=== PATIENT | female | born 1970 | race Caucasian/White ===

== ENCOUNTER 2018-01-01 19:00 | Outpatient (CLI) | payer BC ==
[2014-08-03 06:08] VITALS: BMI 39.6
[~2018-01-01 19:00] MED LIST: ALBUTEROL0.63 MG/3 INH; BUTALB-APAP-CA1 EACH PO; DYAZIDE 37.5/251 CAP PO; FEXOFENADINE H180 MG PO; FORTAMET1000 MG/BO PO; HYDROCODONE-APA1 TAB PO; LIPITOR10 MG PO; LISINOPRIL2.5 MG PO; MOBIC7.5 MG PO; PEPCID40 MG PO; PROAIR HFA8.5 GM INH; PROMETRIUM100 MG PO; ROBAXIN500 MG PO; VICTOZA0.6 MG/0.1 SQ; VITAMIN D5000 UNIT PO; ZOFRAN4 MG PO
== END 2018-01-01 23:59 | disposition home or self-care (01) ==
LOC: D.MAMMO 19:00
DX: Z12.31 Encounter for screening mammogram for malignant neoplasm of breast (principal)

== ENCOUNTER 2018-07-16 09:06 | Emergency (ER) | payer BC ==
[~2018-07-16] VITALS: Ht 167.6 cm; Wt 102.5 kg
[2018-07-16 09:12] VITALS: Ht 167.6 cm; Wt 102.5 kg
[2018-07-16 10:14] VITALS: BP 134/83
[2018-07-16] MEDS ORDERED: PREDNISONE20 MG PO (10:22)
== END 2018-07-16 10:33 | disposition home or self-care (01) ==
LOC: D.ER 09:06
DX: G51.0 Bell's palsy (principal)

== ENCOUNTER → 2018-10-06 07:39 | Outpatient (CLI) | payer BC ==
[2018-07-16 09:12] VITALS: BMI 39.6
[~2018-10-06 07:39] MED LIST changes: +PREDNISONE20 MG PO
== END | disposition home or self-care (01) ==
LOC: D.CT 07:39
PROVIDERS: ATTEND Family Medicine
DX: R10.11 Right upper quadrant pain (principal)

== ENCOUNTER 2018-10-19 08:12 | Day surgery (SDC) | payer BC ==
[~2018-10-19] VITALS: Ht 167.6 cm; Wt 99.1 kg
[2018-10-19 08:27] LABS: HEMATOCRIT 41.2 % (36.0-48.0); HEMOGLOBIN 13.6 g/dL (12-16); MCH 25.8 pg (26.0-34.0); MEAN PLATELET VOLUME 8.7 fL (7.4-10.4); RBC 5.28 10x6/uL (4.00-5.40); RDW 14.3 % (11.5-14.5); WBC 7.6 10x3/uL (4.8-10.8)
[2018-10-19 08:37] LABS: ANION GAP 10.7 mmol/L (8-16); CALCIUM 8.5 mg/dL (8.5-10.1); CARBON DIOXIDE 28.2 mmol/L (21.0-32.0); CREATININE - SERUM 0.9 mg/dL (0.6-1.3)
[2018-10-19 08:41] LABS: POTASSIUM - SERUM 2.9 mmol/L (3.5-5.1)
[2018-10-19] MEDS ORDERED: FARXIGA10 MG PO (08:55)
[2018-10-19] MEDS ORDERED: ESTRACE 0.5 MG0.5 MG PO (08:56)
[2018-10-19] MEDS ORDERED: PROTONIX40 MG PO (08:56)
[2018-10-19] MEDS ORDERED: VITAMIN D250000 UNIT PO (08:57)
[2018-10-19] MEDS ORDERED: METOPROLOL TART25 MG PO (08:58)
[2018-10-19] MEDS ORDERED: TROKENDI 100 MG (08:59)
[2018-10-19] MEDS ORDERED: SINGULAIR10 MG PO (08:59)
[2018-10-19 09:06] VITALS: BP 120/62; Ht 167.6 cm; Wt 99.1 kg
--- NOTE | 2018-10-19 14:05 | NUR ---
1400 RETAINED FULL LIQUID DIET. NO COMPLAINTS OF NAUSEA. 1 K-DUR 20 MEQ PO ORDERED. SIPPING SODA. BP 98/57. Zoe BARRERA R.N.
--- NOTE | 2018-10-19 14:47 | NUR ---
1440 AWAKE & ALERT. DRESSED. GIVEN DISCHARGE INSTRUCTIONS INCLUDING SHEET LISTING NSAIDS TO AVOID, MED REC., [facility] POST ENDOSCOPIC PROCEDURES D/C INSTRUCTIONS, SHEET LISTING HIGH FIBER FOODS. PT VOICED UNDERSTANDING. TO PRIVATE CAR PER WHEELCHAIR BY STAFF. HOME WITH , MR. MERCADO. Zoe BARRERA R.N.
--- NOTE | 2018-10-19 15:22 | HP ---
PATIENT: ODALIS MERCADO MEDICAL RECORD: [id number] ACCOUNT: [id number] LOCATION:DO : 72 ADMISSION DATE: 10/19/18 PCP: GALILEA YE DO HISTORY AND PHYSICAL EXAMINATION CHIEF COMPLAINT: Weight loss. HISTORY OF PRESENT ILLNESS: The patient has had a weight loss of about 25 pounds since April. It is now September. She has been having some right upper quadrant abdominal pain as well. She has an abnormality found on CT scan, which was worrisome for a neoplastic process or a colitis in the right upper quadrant near the hepatic flexure. I personally reviewed the CT images. I have personally reviewed the CT report. She underwent a colonoscopy in [address] Dial. She has noted no melena. No hematochezia. PAST MEDICAL AND SURGICAL HISTORY: Sleep apnea, on CPAP, asthma. She saw Dr. Ziegler for heart rhythm problems. Gastroesophageal reflux, wyg-pgshglk-vjrifscjs diabetes mellitus. HOME MEDICATIONS: Please see the nursing list. ALLERGIES: BEEF, MILK. PHYSICAL EXAMINATION: GENERAL: The patient does not appear acutely ill. She does not appear chronically ill. VITAL SIGNS: Reviewed. EARS: External ears appear normal. EYES: Extraocular movements are intact. NECK: Trachea is midline. CHEST: No intercostal retractions. PULMONARY: Nonlabored, no stridor. ABDOMEN: Right upper quadrant tenderness. I cannot feel the mass. There is no guarding. The entire examination was performed with the presence of a female nurse. IMPRESSION: 1. Right upper quadrant pain. 2. Unexplained weight loss. 3. Abnormality on CT scan. PLAN: Diagnostic colonoscopy. TRANSINT:[id number] Voice Confirmation ID: [id number] DOCUMENT ID: [id number] HISTORY AND PHYSICAL [id number] ODALIS MERCADO ROBERT MD at 1522 CC: VINCENZO ZIEGLER M.D. and GALILEA YE DO [phone] DICTATION DATE: 10/19/188 DISTRICT MANAGER MAJOR ACCOUNTS SALES: 10/19/18 1228 [facility] 10/19/18 [facility] [address] [place] [address]
--- NOTE | 2018-10-20 09:21 | OP ---
PATIENT NAME: ODALIS MERCADO MEDICAL RECORD: [id number] :72 LOCATION:D.OPS ADMISSION DATE: SURGEON: OSCAR ABDALLA MD DATE OF OPERATION: 10/19/2018 PREOPERATIVE DIAGNOSES: 1. Unexplained weight loss. 2. Right upper quadrant pain. 3. CT abnormality in the right upper quadrant at the hepatic flexure suspicious for colitis versus a neoplasm. POSTOPERATIVE DIAGNOSES: 1. Unexplained weight loss. 2. Right upper quadrant pain. 3. CT abnormality in the right upper quadrant at the hepatic flexure suspicious for colitis versus neoplasm. 4. No evidence of colitis and no evidence of malignancy. No polyps, no masses. PROCEDURES: 1. Total colonoscopy to cecum. 2. Cold endoscopic biopsies in the area at the hepatic flexure. SURGEON: Oscar Abdalla MD RN CIRCULATING: None. BLOOD LOSS: Minimal. ANESTHESIA: IV sedation. COMPLICATIONS: None. The risks, possible complications, and alternatives to the procedure were explained to the patient. She elects to proceed. The discussion specifically included, but was not limited to, bleeding requiring emergency reoperation, infection, possible need for an operative procedure. The patient underwent a colonoscopy back in 2017 according to the patient's history and no malignancy was identified at that time. A CT scan has demonstrated a strictured area at the hepatic flexure. OPERATIVE COURSE: The patient was conveyed to the operating room electively on the 10/19/2018. General anesthesia was induced by the anesthesia staff. The patient was placed in the Ramirez position. A digital rectal examination was performed. A colonoscope was inserted through the anus. It was easily advanced to the cecum. Upon withdrawal, I irrigated and aspirated extensively. The pullback was greater than 30-minute pullback. I dragged the folds. I used not only normal imaging, but also narrow band imaging to visualize the colonic and rectal flood. I noted no evidence of colitis; however, in the area of suspicion on the CT scan, I did perform random colon biopsies, which were cold endoscopic biopsies. A retroflexed view was obtained in the rectum. I then unretroflexed the scope and removed it under direct vision. 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 I am going to recommend that she not come see me in the office, but instead look me up in a OPERATIVE REPORT [id number] ROGELIO,ODALIS A few days and we will review the results of the biopsies. I am at a loss to explain why the CT findings would indicate a neoplastic process or colitis. Additionally, I have not found the etiology for her right upper quadrant pain. TRANSINT:[id number] Voice Confirmation ID: [id number] DOCUMENT ID: [id number] OSCAR ABDALLA MD at 0921 CC: JOEY CASILLAS MD, GALILEA YE DO and MIKAL TERRY [phone] DICTATION DATE: 10/19/18 1542 BONDED STRUCTURES REPAIRER: 10/19/18 1607 [facility] 10/19/18 [facility] [address] [place] [address]
== END 2018-10-19 14:40 | disposition home or self-care (01) ==
LOC: D.OPS 08:12
PROVIDERS: Anesthesiology; ATTEND Surgery
DX: R63.4 Abnormal weight loss (principal); R10.11 Right upper quadrant pain; K21.9 Gastro-esophageal reflux disease without esophagitis; E11.9 Type 2 diabetes mellitus without complications

== ENCOUNTER → 2019-02-07 07:55 | Outpatient (CLI) | payer BC ==
[2018-10-19 09:06] VITALS: BMI 35.2
[~2019-02-07 07:55] MED LIST changes: +ESTRACE 0.5 MG0.5 MG PO; +FARXIGA10 MG PO; +METOPROLOL TART25 MG PO; +PROTONIX40 MG PO; +SINGULAIR10 MG PO; +TROKENDI 100 MG; +VITAMIN D250000 UNIT PO
== END | disposition home or self-care (01) ==
LOC: D.NM 07:55
PROVIDERS: ATTEND Family Medicine
DX: R93.7 Abnormal findings on diagnostic imaging of other parts of musculoskeletal system (principal)

== ENCOUNTER → 2019-11-03 09:31 | Outpatient (CLI) | payer BC ==
[2018-10-19 09:06] VITALS: BMI 35.2
== END | disposition home or self-care (01) ==
LOC: D.HCCARDIO 09:31
PROVIDERS: ATTEND Internal Medicine Cardiovascular Disease
DX: I20.9 Angina pectoris, unspecified (principal)

== ENCOUNTER 2019-11-24 07:04 | Day surgery (SDC) | payer BC ==
[~2019-11-24] VITALS: Ht 167.6 cm; Wt 105.1 kg
--- NOTE | ~2019-11-24 | HEMODYNAMI ---
PATIENT:ODALIS MERCADO MEDICAL RECORD: [id number] : 72 LOCATION:[place] ADMISSION DATE: 11/24/19 Generatedon:11/24/20199:40 Patient name: ODALIS MERCADO Patient #: [id number] SSN: : 1970 Date of study: 11/24/2019 Page: Of Hemodynamic Procedure Report Patient Data Patient Demographics Procedure consent was obtained First Name: ODALIS Gender: Female Last Name: ROGELIO : 1970 Middle Initial: A Age: 49 year(s) Patient #: [id number] Race: Unknown Additional ID: [id number] Contact details [address]: [address] [place] [address] [address] State: [place] City: [place] Zip code: [address] Admission Admission Data Admission Date: 11/24/2019 Admission Time: 7:04 Procedure Procedure Types Cath Procedure Diagnostic Procedure LHC LHC w/Coronaries Sedation Charges Moderate Sedation up to 15 minutes Procedure Description Procedure Date Procedure Date: 11/24/2019 Procedure Start Time: 9:27 Procedure End Time: 9:37 Procedure Staff Name Function Andrzej Ziegler MD Performing Physician Madeline Muniz RT Monitor Gilmer Montes RN Nurse Martha Browne RT Scrub Procedure Data Cath Procedure Fluoroscopy Diagnostic fluoroscopy Total fluoroscopy Time: 1.7 time: 1.7 min min Diagnostic fluoroscopy Total fluoroscopy dose: 469 dose: 469 mGy mGy Contrast Material Contrast Material Type Amount (ml) Isovue 300 36 Entry Location Entry Primary Successful Side Size Upsize Upsize Entry Closure Amaya ccessful Closure Location (Fr) 1 (Fr) 2 (Fr) Remarks Device Remarks Radial Right 6 Fr Mechanical artery Short Compression Estimated blood loss: 10 ml Diagnostic catheters Device Type Used For End Catheter Placement DIAGNOSTIC [place] 110cm 5 Procedure Fr catheter ([id number]) Procedure Complications No complications Procedure Medications Medication Administration Route Dosage 0.9% NaCl I.V. 100 ml/hr Oxygen etCO2 Nasal cannula 2 l/min Heparin Flush Bag added to field 2 bags (1000units/500ml NS) Lidocaine 2% added to field 20 Radial Cocktail added to field 1 syringe (Verapamil 2mg/Nitro 400mcg/Heparin 1500units) Versed I.V. 2 mg Fentanyl I.V. 50 mcg Fentanyl I.V. 50 mcg Radial Cocktail I.A. 1 syringe (Verapamil 2mg/Nitro 400mcg/Heparin 1500units) Hemodynamics Rest Heart Rate: 64 (bpm) Pressure Samples Time Site Value (mmHg) Purpose Heart Use Rate(bpm) 9:31 LV 127/9,11 Snapshot 68 9:31 AO 97/58(76) Pullback 72 9:31 LV 104/4,21 Pullback 72 Gradients Valve Time Site 1 Site 2 Mean SEP/DFP Peak To Heart Use (mmHg) (sec/min) Peak Rate (mmHg) (bpm) Aortic 9:31 LV AO 8 19 7 72 104/4,21 97/58(76) Calculations Valve P-P Mean Valve Index Valve Source Name Gradient Area Flow (cm2) Aortic 7 8 7 8 Snapshots Pre Cath Intra NCS Post Cath Vital Signs Time Heart Resp SPO2 etCO2 NIBP Rhythm Pain Sedation Rate (ipm) (%) (mmHg) (mmHg) Status Level (bpm) 8:57:52 64 13 100 38 115/66(90) NSR 0 (11) 10(A) , No pain 9:02:04 68 14 100 38.8 114/74(85) NSR 0 (11) 10(A) , No pain 9:06:14 64 11 100 111/70(87) NSR 0 (11) 10(A) , No pain 9:10:26 66 10 100 40.3 107/67(88) NSR 0 (11) 10(A) , No pain 9:14:38 62 13 99 44.1 101/59(83) NSR 0 (11) 10(A) , No pain 9:18:48 60 13 98 44 96/59(85) NSR 0 (11) 10(A) , No pain 9:22:58 66 13 98 39.6 91/57(72) NSR 0 (11) 10(A) , No pain 9:27:06 61 11 98 44.8 91/55(70) NSR 0 (11) 9(A) , No pain 9:31:15 83 13 100 41.1 94/51(67) NSR 0 (11) 10(A) , No pain 9:35:25 69 17 98 40.4 96/54(75) NSR 0 (11) 10(A) , No pain Medications Time Medication Route Dose Verified Delivered Reason Notes Effectiveness by by 8:55:57 0.9% NaCl I.V. 100 Gilmer Gilmer Per ml/hr Simon Montes physician RN RN 8:56:06 Oxygen etCO2 2 l/min Gilmer Gilmer for low 02 Nasal Lorigan Lorigan sats cannula RN RN 8:56:17 Heparin Flush added 2 bags Gilmer Gilmer used for Bag to Lorigan Lorshy procedure (1000units/500ml field RN RN NS) 8:56:27 Lidocaine 2% added 20ml Gilmer Gilmer for local to vial Lorigan Lorigan anesthetic field RN RN 8:56:43 Radial Cocktail added 1 Gilmer Gilmer used for (Verapamil to syringe Lorigan Lorigan procedure 2mg/Nitro field RN RN 400mcg/Heparin 1500units) 9:17:25 Versed I.V. 2 mg Gilmer Gilmer for sedation Simon Montes RN RN 9:17:33 Fentanyl I.V. 50 mcg Gilmer Gilmer for sedation Simon Montes RN RN 9:28:46 Fentanyl I.V. 50 mcg Gilmer Gilmer for sedation Simon Montes RN RN 9:30:28 Radial Cocktail I.A. 1 Gilmer Gilmer for (Verapamil syringe Lorigan Lorigan vasodilation 2mg/Nitro RN RN 400mcg/Heparin 1500units) Procedure Log Time Note 8:35:32 Informed consent obtained and on chart 8:36:28 Gilmer Montes RN sent for patient. Start room use. 8:36:29 Procedure Status Elective Heart Cath (OP). 8:36:30 Time tracking: Regular hours (M-F 7:00 - 5:00) 8:36:35 Plan of Care:Hemodynamics will remain stable., Cardiac rhythm will remain stable., Comfort level will be maintained., Respiratory function will remain adequate., Patient/ family verbilizes understanding of procedure., Procedure tolerated without complication., Recovers from procedure without complications.. 8:47:10 Warm blankets applied, and nata hugger turned on for patient comfort. 8:47:11 Correct patient and procedure confirmed by team. 8:47:12 ECG and BP/O2 sat monitors applied to patient. 8:47:47 H&P Date Dictated: 10/27/2019 Within 30 days and on chart.. 8:47:50 Pre-procedure instructions explained to patient. 8:47:53 Family in patients room. 8:47:55 Patient NPO since Midnight. 8:48:20 Is patient on blood thinner?No 8:48:22 Patient diabetic? Yes. 8:48:24 If diabetic: On Metformin? No 8:48:29 Snore? Yes 8:48:31 Sleep apnea? Yes 8:48:40 Airway obstruction? Yes asthma 8:48:44 Dentures? No ? 8:48:54 Patient pain scale 0/10 ?. 8:49:02 IV patent on arrival in left forearm with 0.9% NaCl at [facility]. 8:49:05 Lab results completed and on chart. 8:55:57 0.9% NaCl 100 ml/hr I.V. was administered by Gilmer Montes RN; Per physician; Verbal order read back and verified. 8:56:06 Oxygen 2 l/min etCO2 Nasal cannula was administered by Gilmer Montes RN; for low 02 sats; Verbal order read back and verified. 8:56:17 Heparin Flush Bag (1000units/500ml NS) 2 bags added to field was administered by Gilmer Montes RN; used for procedure; Verbal order read back and verified. 8:56:27 Lidocaine 2% 20ml vial added to field was administered by Gilmer Montes RN; for local anesthetic; Verbal order read back and verified. 8:56:43 Radial Cocktail (Verapamil 2mg/Nitro 400mcg/Heparin 1500units) 1 syringe added to field was administered by Gilmer Montes RN; used for procedure; Verbal order read back and verified. 8:56:46 Vital chart was started 8:57:06 Stress Test: yes; abnormal ? 8:57:11 Right Radial & Right Groin area was prepped with chlora-prep and draped in sterile fashion 8:57:12 Alarms reviewed by R. N. 8:57:13 Sharps counted by scrub and verified by R.N. 8:57:18 Use device set Radial Dx or PCI 8:57:23 ACIST Syringe (11468) opened to sterile field. 8:57:24 Medline Cath Pack ([id number]) opened to sterile field. 8:57:24 Bag Decanter () opened to sterile field. 8:57:24 ACIST Hand Control (40021) opened to sterile field. 8:57:25 ACIST Manifold (87910) opened to sterile field. 8:57:27 MBrace Wrist Support (164567728) opened to sterile field. 8:57:30 NEEDLE Cook 21G 4cm Radial (V79218) opened to sterile field. 8:57:32 EMERALD Guide Wire (502-000) opened to sterile field. 8:57:34 SHEATH 6FR RAIN (8849807) opened to sterile field. 9:16:42 Baseline sample Acquired. 9:16:44 Full Disclosure recording started 9:16:49 Physician arrived 9:16:53 --------ALL STOP TIME OUT------ 9:16:56 Final Timeout: patient, procedure, and site verified with staff and physician. All members of the team are in agreement. 9:17:25 Versed 2 mg I.V. was administered by Gilmer Montes RN; for sedation; Verbal order read back and verified. 9:17:26 Right Radial & Right Groin site verified by team. 9:17:30 Fire Safety Assessment: A--An alcohol-based skin anteseptic being used preoperatively., C--Open oxygen or nitrous oxide is being used., D--An ESU, laser, or fiber-optic light is being used. 9:17:33 Fentanyl 50 mcg I.V. was administered by Gilmer Montes RN; for sedation; Verbal order read back and verified. 9:17:35 Physical assessment completed. ASA score P 2 - A patient with mild systemic disease as per Andrzej Ziegler MD. 9:17:42 1) 90+ Normal kidney functon but urine findings or structural abnormalities or genetic trait point to kidney disease. 9:17:46 Maximum allowable contrast dose (3.7 X eGFR X 0.75)250 ml. 9:18:01 Sedation plan: IV Moderate Sedation Medication:Versed, Fentanyl 9:21:14 Zero performed for pressure channel P1 9:27:23 Procedure started. 9:27:47 Local anesthetic to right radial artery with Lidocaine 2% by Andrzej Ziegler MD.INITIAL ACCESS ONLY 9:28:46 Fentanyl 50 mcg I.V. was administered by Gilmer Montes RN; for sedation; Verbal order read back and verified. 9:29:37 A 6 Fr Short sheath was inserted into the Right Radial artery 9:30:01 A DIAGNOSTIC [place] 110cm 5 Fr catheter (622724) was advanced over the wire and used for Procedure. 9:30:06 LV angiography performed. 9:30:26 LV gram done using SPENCER 9:30:28 Radial Cocktail (Verapamil 2mg/Nitro 400mcg/Heparin 1500units) 1 syringe I.A. was administered by Gilmer Montes RN; for vasodilation; Verbal order read back and verified. 9:31:31 EF : 60 % 9:31:57 LCA angiography performed. 9:33:55 RCA angiography performed. 9:34:06 Catheter removed. 9:34:18 ZEPHYR REGULAR TR BAND (087693) opened to sterile field. 9:35:02 Sheath removed intact; hemostasis achieved with Mechanical Compression to the Right Radial artery. 9:35:05 Procedure ended.(Physican Out) 9:35:35 Fluoroscopy time 01.70 minutes. 9:35:40 Fluoroscopy dose: 469 mGy 9:35:40 Flurop Dose total: 469 9:35:44 Dose Area Product 36619 mGy/cm. 9:35:50 Contrast amount:Isovue 300 36ml. 9:35:52 Maximum allowable dose exceeded? No. 9:35:54 Insertion/operative site no bleeding no hematoma. 9:35:58 [place] band inflated with 10cc of air. 9:36:01 Post Procedure Pulses reassessed and unchanged 9:36:05 Post procedure rhythm: unchanged. 9:36:09 Estimated blood loss: 10 ml 9:36:14 Post procedure instruction explained to patient.Patient verbalizes understanding. 9:36:31 Procedure type changed to Cath procedure, Diagnostic procedure, LHC, [facility] w/Coronaries, Sedation Charges, Moderate Sedation up to 15 minutes 9:36:32 Procedure and supply charges have been captured, reviewed, submitted and are correct. 9:36:50 Procedure Complication : No complications 9:36:53 Vital chart was stopped 9:36:55 [facility] Findings: mild to moderate CAD (<70%) 9:36:57 See physician's report for complete and final results. 9:37:00 Report given to Pre/Post Procedure Room. 9:37:07 Patient transfered to Pre/Post Procedure Room with Stretcher. 9:37:09 Procedure ended. 9:37:09 Full Disclosure recording stopped 9:37:14 End room use (Document Last) 9:39:10 End room use (Document Last) 9:39:37 End room use (Document Last) Device Usage Item Name Manufacture Quantity Catalog Hospital Part Current Minima l Lot# / Number Charge Number Stock Stock Serial# Code ACIST Acist 1 87589 169941 193042 794419 20 Syringe Medical (45104) Systems Inc Medline Medline 1 [id number] 471287 30626 583864 5 Cath Pack ([id number]) Bag Microtek 1 953106 07911 131399 5 Decanter Medical Inc. () ACIST Hand Acist 1 07224 837080 536800 121346 5 Control Medical (10338) Systems Inc ACIST Acist 1 41866 756971 773943 099237 5 Manifold Medical (31674) Systems Inc MBrace Advanced 1 140-0250-00 252240 75051 767868 5 Wrist Vascular Support Dynamics ([id number]) NEEDLE Cook Cook Medical 1 U75756 882107 151495 042244 5 21G 4cm Radial (H12747) EMERALD Cardinal 1 502-455 584089 436650 229019 5 Guide Wire Health (502455) SHEATH 6FR Cardinal 1 6573571 908357 0142167 228154 5 [facility] (9148476) DIAGNOSTIC Terumo 1 40-5013 170446 103288 525616 5 [place] 110cm 5 Fr catheter (587694) ZEPHYR Cardinal 1 442743 815115 0005624 406857 5 REGULAR TR Health BAND (405700) Signature Audit [place] Stage Time Signature Unsigned Intra-Procedure 11/24/2019 Madeline Muniz 9:39:10 AM RT(R) Intra-Procedure 11/24/2019 Gilmer 9:39:37 AM Simon JACINTO Intra-Procedure 11/24/2019 Andrzej Ziegler MD 9:40:03 AM [place] [address] [place] [address]
[~2019-11-24 07:04] MED LIST changes: +METHOCARBAMOL500 MG PO; -ROBAXIN500 MG PO; -TROKENDI 100 MG; +TROKENDI 100 MG PO
[2019-11-24] MEDS ORDERED: JARDIANCE25 MG PO (08:07)
[2019-11-24] MEDS ORDERED: VITAMIN D50000 UNI2 PO (08:07)
[2019-11-24] MEDS ORDERED: ESTRACE2 MG PO (08:13)
[2019-11-24] MEDS ORDERED: METHOCARBAMOL500 MG PO (08:14)
[2019-11-24 08:22] VITALS: BP 119/60; Ht 167.6 cm; Wt 105.1 kg
[2019-11-24 08:23] LABS: BASOPHILS 0.3 % (0-2); EOSINOPHILS 1.8 % (0-7); HEMATOCRIT 38.4 % (36.0-48.0); HEMOGLOBIN 11.9 g/dL (12-16); IMMATURE GRANULOCYTES 0.1 % (0-5); LYMPHOCYTES 32.7 % (15-50); MCH 22.9 pg (26.0-34.0); MCV 73.8 fL (80.0-100.0); MEAN PLATELET VOLUME 8.5 fL (7.4-10.4); MONOCYTES 6.7 % (2-11); NEUTROPHILS 58.4 % (40-80); PLATELET COUNT 277 10x3/uL (130-400); RDW 17.5 % (11.5-14.5); WBC 7.8 10x3/uL (4.8-10.8)
[2019-11-24 08:51] LABS: ALT (SGPT) 16 U/L (10-68); CALC OSMOLALITY 276 mosm/kg (275-300); CALCIUM 8.5 mg/dL (8.5-10.1); CHLORIDE - SERUM 105 mmol/L (98-107); CHOLESTEROL, TOTAL 178 mg/dL (0-200); CREATININE - SERUM 0.6 mg/dL (0.6-1.3); GLUCOSE 148 mg/dL (74-106); HDL CHOLESTEROL 60 mg/dL (32-96); LDL CHOLESTEROL 92 mg/dL (0-100); LDL-HDL RATIO 1.5 ratio (1.5-3.5); POTASSIUM - SERUM 3.5 mmol/L (3.5-5.1); SODIUM 137 mmol/L (136-145); TRIGLYCERIDE 130 mg/dL (30-200); UREA NITROGEN 12 mg/dL (7-18); eGFR NON AFRICAN AMERICAN > 90 mL/min (90-120)
--- NOTE | 2019-11-24 09:45 | NUR ---
PT REC'D TO ROOM 3 VIA STRETCHER FROM PSYCHOLOGICAL OPERATIONS. MONITORS ESTAB. AT BS. SEE BUSINESS LAW PROFESSOR. ALARMS ON AND C/L IN REACH.
--- NOTE | 2019-11-24 10:00 | NUR ---
R WRIST SITE C/D/I, NO S/S BLEEDING OR SWELLING. R ARM/HAND WARM WITH PALP PULSES AND BRISK CAP REFILL. DR. WARREN AT BS TO UPDATE PT AND , VSS, ALARMS ON AND C/L IN REACH.
--- NOTE | 2019-11-24 10:30 | NUR ---
PT RESTING QUIETLY. R WRIST SITE C/D/I, NO S/S BLEEDING OR HEMATOMA. PULSES PALP. PT REFUSES SANDWICH TRAY AT THIS TIME, DENIES N/V. ALARMS ON AND C/L IN REACH.
--- NOTE | 2019-11-24 10:45 | NUR ---
R WRIST SITE C/D/I, NO S/S BLEEDING OR SWELLING, PULSES PALP. VSS. C/L IN REACH.
--- NOTE | 2019-11-24 11:01 | NUR ---
3CC AIR REMOVED FROM Z BAND, NO S/S BLEEDING OR HEMATOMA. PULSES PALP. WILL CONT CLOSE MONITORING. ALARMS ON AND C/L IN REACH.
--- NOTE | 2019-11-24 11:15 | NUR ---
TOTAL 5 CC AIR REMOVED FROM Z BAND. NO S/S BLEEDING OR SWELLING, HAND WARM WITH PALP PULSES. VSS. PT DENIES PAIN OR NEEDS. AT BS.
--- NOTE | 2019-11-24 11:30 | NUR ---
ALL AIR REMOVED FROM Z BAND, NO S/S BLEEDING OR SWELLING. R ARM/HAND WARM WITH PALP PULSES. VSS. WILL CONT CLOSE MONITORING.
--- NOTE | 2019-11-24 12:05 | NUR ---
R WRIST SITE C/D/I, NO S/S BLEEDING. Z BAND REMOVED AND DSG APPLIED. PIV D/C'D INTACT, DSG APPLIED. PT ALLOWED UP TO GET DRESSED AND GO TO BR INDEPENDENTLY.
--- NOTE | 2019-11-24 12:10 | NUR ---
ALL DISCHARGE INSTRUCTIONS REVIEWED WITH PT AND HER , BOTH VERBALIZE UNDERSTANDING. PT D/C'D VIA WC TO PRIVATE VEHICLE WITH ALL PAPER WORK AND BELONGINGS.
== END 2019-11-24 12:10 | disposition home or self-care (01) ==
LOC: D.CATH 07:04
PROVIDERS: ATTEND Internal Medicine Cardiovascular Disease
DX: I20.9 Angina pectoris, unspecified (principal); R94.39 Abnormal result of other cardiovascular function study; R06.00 Dyspnea, unspecified; E11.9 Type 2 diabetes mellitus without complications; E78.5 Hyperlipidemia, unspecified

== ENCOUNTER 2020-07-18 12:39 | Inpatient (IN) | payer BC ==
[2020-07-18] VITALS (8 sets, daily range): BP systolic 116–145; BP diastolic 72–81
[~2020-07-18] VITALS: Ht 167.6 cm; Wt 99.8 kg
[~2020-07-18 12:39] MED LIST changes: +ESTRACE2 MG PO; +JARDIANCE25 MG PO; +VITAMIN D50000 UNI2 PO
[2020-07-18 13:44] LABS: BASOPHILS 0.4 % (0-2); EOSINOPHILS 0.2 % (0-7); HEMATOCRIT 41.7 % (36.0-48.0); HEMOGLOBIN 13.3 g/dL (12-16); MCH 21.7 pg (26.0-34.0); MCHC 31.8 g/dL (31.0-37.0); MCV 68.4 fL (80.0-100.0); MEAN PLATELET VOLUME 7.1 fL (7.4-10.4); MONOCYTES 10.3 % (2-11); NEUTROPHILS 63.1 % (40-80); PLATELET COUNT 266 10x3/uL (130-400); RDW 15.6 % (11.5-14.5); WBC 5.8 10x3/uL (4.8-10.8)
[2020-07-18 14:04] LABS: APTT 26.2 SECONDS (22.8-39.4); INR 0.99 (0.85-1.17); PROTIME 12.1 SECONDS (11.6-15.0)
[2020-07-18 14:06] LABS: ALBUMIN 3.3 g/dL (3.4-5.0); ALKALINE PHOSPHATASE 114 U/L (30-120); ALT (SGPT) 17 U/L (10-68); BILIRUBIN - TOTAL 0.21 mg/dL (0.2-1.3); CALC OSMOLALITY 276 mosm/kg (275-300); CALCIUM 8.7 mg/dL (8.5-10.1); CARBON DIOXIDE 26.8 mmol/L (21.0-32.0); CHLORIDE - SERUM 97 mmol/L (98-107); CKMB 0.7 U/L (0.0-3.6); CREATINE KINASE 28 UL (21-215); CREATININE - SERUM 0.7 mg/dL (0.6-1.3); GLUCOSE 155 mg/dL (74-106); PRO BNP 26 pg/mL (0-125); PROTEIN - SERUM 7.6 g/dL (6.4-8.2); SODIUM 136 mmol/L (136-145); UREA NITROGEN 17 mg/dL (7-18); eGFR NON AFRICAN AMERICAN > 90 mL/min (90-120)
[2020-07-18 14:13] LABS: TROPONIN-I < 0.017 ng/mL (0.000-0.060)
[2020-07-18 14:29] LABS: POTASSIUM - SERUM 2.5 mmol/L (3.5-5.1)
[2020-07-18] MEDS ORDERED: GLUCOPHAGE1000 MG PO (20:50)
--- NOTE | 2020-07-18 21:24 | NUR ---
REPORT RECEIVED. PT A&O, UP IN BEDSIDE CHAIR. NO S/S OF DISTRESS OBSERVED. RR EVEN & UNLABORED ON RA. IV TO R HAND INFUSING NS @ 50. 0/10 PAIN. UA COLLECTED. K REDRAW 3.O. WILL ADMINSITER PER ELECTROLYTE PROTOCOL. BED LOCKED AND LOWERED, BEDSIDE CHAIR LOCKED, CL IN REACH. ASSESSMENT COMPLETE. WILL CONT POC.
[2020-07-18 22:35] LABS: BILIRUBIN NEGATIVE (NEGATIVE); KETONE MODERATE mg/dL (NEGATIVE); NITRITE NEGATIVE (NEGATIVE); UROBILINOGEN NORMAL mg/dL (< 2)
[2020-07-19] VITALS (8 sets, daily range): BP systolic 106–127; BP diastolic 56–78; Ht 167.6 cm; Wt 99.8 kg
[2020-07-19 03:20] LABS: BASOPHILS 0.1 % (0-2); EOSINOPHILS 0.1 % (0-7); HEMATOCRIT 40.3 % (36.0-48.0); HEMOGLOBIN 12.9 g/dL (12-16); LYMPHOCYTES 16.9 % (15-50); MCH 21.9 pg (26.0-34.0); MCV 68.2 fL (80.0-100.0); MEAN PLATELET VOLUME 7.3 fL (7.4-10.4); MONOCYTES 3.3 % (2-11); NEUTROPHILS 79.6 % (40-80); PLATELET COUNT 253 10x3/uL (130-400); RBC 5.91 10x6/uL (4.00-5.40); RDW 15.5 % (11.5-14.5); WBC 5.7 10x3/uL (4.8-10.8)
[2020-07-19 03:37] LABS: ALBUMIN 3.2 g/dL (3.4-5.0); ALKALINE PHOSPHATASE 107 U/L (30-120); BILIRUBIN - TOTAL 0.29 mg/dL (0.2-1.3); CALC OSMOLALITY 279 mosm/kg (275-300); CALCIUM 8.4 mg/dL (8.5-10.1); CARBON DIOXIDE 26.7 mmol/L (21.0-32.0); CHLORIDE - SERUM 100 mmol/L (98-107); CREATININE - SERUM 0.6 mg/dL (0.6-1.3); GLUCOSE 158 mg/dL (74-106); PROTEIN - SERUM 7.3 g/dL (6.4-8.2); SODIUM 138 mmol/L (136-145); UREA NITROGEN 16 mg/dL (7-18); eGFR NON AFRICAN AMERICAN > 90 mL/min (90-120)
[2020-07-19 03:38] LABS: ALT (SGPT) 24 U/L (10-68); POTASSIUM - SERUM 3.5 mmol/L (3.5-5.1)
[2020-07-19 09:39] LABS: C-REACTIVE PROTEIN 0.8 mg/dL (0.0-0.9)
--- NOTE | 2020-07-19 20:00 | NUR ---
REPORT RECIEVED. PT A&O, UP IN BEDSIDE CHAIR. NO S/S OF DISTRESS OBSERVED. RR EVEN AND UNLABORED ON RA. BED LOCKED AND LOWERED, CL IN REACH. ASSESSMENT COMPLETE. WILL CONT POC.
[2020-07-20 04:33] VITALS: BP 101/49
--- NOTE | 2020-07-20 07:20 | NUR ---
PT SITTING UP IN CHAIR. RESP EVEN AND UNLABORED. AAO X4. DENIES NEEDS AT THIS TIME. CLIR.
[2020-07-20 07:54] VITALS: BP 106/68
[2020-07-20 08:22] LABS: BASOPHILS 0.4 % (0-2); EOSINOPHILS 0.3 % (0-7); HEMATOCRIT 38.6 % (36.0-48.0); HEMOGLOBIN 12.2 g/dL (12-16); LYMPHOCYTES 47.4 % (15-50); MCH 21.7 pg (26.0-34.0); MCHC 31.5 g/dL (31.0-37.0); MCV 68.7 fL (80.0-100.0); MEAN PLATELET VOLUME 6.6 fL (7.4-10.4); NEUTROPHILS 42.9 % (40-80); PLATELET COUNT 276 10x3/uL (130-400); RBC 5.62 10x6/uL (4.00-5.40); RDW 15.3 % (11.5-14.5); WBC 6.9 10x3/uL (4.8-10.8)
[2020-07-20 08:39] LABS: ALBUMIN 3.1 g/dL (3.4-5.0); ALKALINE PHOSPHATASE 92 U/L (30-120); ALT (SGPT) 20 U/L (10-68); BILIRUBIN - TOTAL 0.24 mg/dL (0.2-1.3); CALC OSMOLALITY 280 mosm/kg (275-300); CARBON DIOXIDE 26.7 mmol/L (21.0-32.0); CHLORIDE - SERUM 105 mmol/L (98-107); CREATININE - SERUM 0.5 mg/dL (0.6-1.3); GLUCOSE 123 mg/dL (74-106); POTASSIUM - SERUM 3.1 mmol/L (3.5-5.1); PROTEIN - SERUM 6.9 g/dL (6.4-8.2); SODIUM 140 mmol/L (136-145); UREA NITROGEN 14 mg/dL (7-18); eGFR NON AFRICAN AMERICAN > 90 mL/min (90-120)
[2020-07-20] MEDS ORDERED: DECADRON4 MG PO (09:56)
[2020-07-20 10:58] VITALS: BP 101/56
--- NOTE | 2020-07-20 11:30 | MORECARE ---
CASE MANAGEMENT DISCHARGE SUMMARY PATIENT: ODALIS MERCADO UNIT: [id number] ADM DATE: 07/19/20 AGE: 49 : 72 SEX: F ROOM/BED: 2100 AUTHOR: JANET,DOC PHYSICIAN: REFERRING PHYSICIAN: VASHTI BRYAN MD DATE OF SERVICE: 07/20/20 Case Management Discharge Planning Summary DCP REVIEW SUMMARY ANTICIPATED D/C DATE: 07/20/2020 EXPECTED LOS : 1 CASE STATUS: DCP Initiated INITIAL REVIEW: 07/18/2020 INITIAL REVIEWER: Val Tijerina FINAL DISCHARGE DISPOSITION: 01 : Home or Self Care (Routine Discharge) FINAL REVIEWER: FINAL REVIEW DATE: DCP Focus Questions & Answers QUESTION: ANSWER : PATIENT: ODALIS MERCADO ENCOUNTER: [id number] MEDICAL RECORD#: [id number] ADMISSION DATE: 07/19/2020 DISCHARGE DATE: ATTENDING MD: VASHTI HAILE : AGE: 49 MARITAL STATUS: M DC PLAN ID: [id number] FACILITY: [facility] PRINTED ON: 07/20/20 11:30 CT All edits/amendments must be made on the electronic document DICTATION DATE: 07/20/20 113 TRANSPORTATION DISPATCH MANAGER: SCOT 07/20/20 113 RPT#: [id number] DC DATE: STATUS: ADM IN [facility] [address] [place] [address] END OF REPORT
--- NOTE | 2020-07-20 11:41 | MORECARE ---
CASE MANAGEMENT DISCHARGE SUMMARY PATIENT: ODALIS MERCADO UNIT: [id number] ADM DATE: 07/19/20 AGE: 49 : 72 SEX: F ROOM/BED: D.2100 AUTHOR: JANETDOC PHYSICIAN: REFERRING PHYSICIAN: VASHTI BRYAN MD DATE OF SERVICE: 07/20/20 Case Management Discharge Planning Summary DCP REVIEW SUMMARY ANTICIPATED D/C DATE: 07/20/2020 EXPECTED LOS : 1 CASE STATUS: DCP Initiated INITIAL REVIEW: 07/18/2020 INITIAL REVIEWER: Val Tijerina FINAL DISCHARGE DISPOSITION: 01 : Home or Self Care (Routine Discharge) FINAL REVIEWER: FINAL REVIEW DATE: DCP Focus Questions & Answers DCP Screen QUESTION: ANSWER High Risk Factors: : None Walking limitation: Patient stated self rated walking limitation present? : No Age: : 45 - 64 Prior living environment: : Lives with others Disability ranking: : Grade 1: No significant disability DCP Evaluation QUESTION: ANSWER Patient and/or caregiver agree upon recommended discharge plan? : Yes Patient's current cognitive status: : *Oriented to person, place, situation, time and present Patient's ability to cope with chronic illness : d. No chronic illness Family / Caregiver's ability to cope with chronic illness: : a. Adequate (ability to meet patient's medical needs, ensures patient attends medical appts.) Does the patient have the ability to pay for or attain post discharge needs / services? : Yes Functional screen assessment: : Basic needs can adequately be met by self Family / Caregiver's ability to cope with chronic illness: : a. Adequate (ability to meet patient's medical needs, ensures patient attends medical appts.) Physical Status: : Independent with ADL's Equipment needed for post hospitalization: : None Is there a likelihood that the patient will require additional services to return to the preadmission environment? : N/A Living Arrangements: : Home with Spouse/Significant Other Results of this evaluation have been discussed with: : Patient Patient with capacity for self-care or can be cared for in same environment as prior to hospitalization? : Yes Baseline cognitive status: : *Oriented to person, place, situation, time and present Physical environment modification needed / anticipated for discharge: : N/A Medication Management: : Patient states can afford medications Medication Management: : Patient states they do have transportation to excelsior picker medications Medication Management: : Patient states can read and understand medication labels Planned post hospital services available for patient? : N/A [facility] Planned post hospital services covered by insurance plan? : N/A Does Patient have transportation to get home and to follow-up medical appointments when discharged from the hospital? : Yes Would patient like to participate in any Care Coordination programs (if applicable): : Not applicable Does the patient have electricity at home? : Yes Does the patient have running water in their house? : Yes Equipment in use: : None Mental health screen: : No mental health history Psychosocial status: : Independent adult (18-64) Abuse/Neglect: : None Resources / Services in place: : None DCP Re-evaluation QUESTION: ANSWER Would patient like to participate in any Care Coordination programs (if applicable): : Not applicable PATIENT: ODALIS MERCADO ENCOUNTER: [id number] MEDICAL RECORD#: [id number] ADMISSION DATE: 07/19/2020 DISCHARGE DATE: ATTENDING MD: AVSHTI HAILE : AGE: 49 MARITAL STATUS: M DC PLAN ID: [id number] FACILITY: [facility] PRINTED ON: 07/20/20 11:41 CT All edits/amendments must be made on the electronic document DICTATION DATE: 07/20/20 114 BUSGIRL: SCOT 07/20/20 1141 RPT#: [id number] DC DATE: STATUS: ADM IN [facility] [address] [place] [address] END OF REPORT
--- NOTE | 2020-07-20 11:52 | MORECARE ---
CASE MANAGEMENT DISCHARGE SUMMARY PATIENT: ODALIS MERCADO UNIT: [id number] ADM DATE: 07/19/20 AGE: 49 : 72 SEX: F ROOM/BED: D.2108 AUTHOR: JANET,DOC PHYSICIAN: REFERRING PHYSICIAN: VASHTI BRYAN MD DATE OF SERVICE: 07/20/20 Case Management Discharge Planning Summary COMMENTS ENTERED DATE: 07/20/20 11:35 CT COMMENT TYPE: Discharge Planning REVIEWER: Val Tijerina CM met with patient via phone to complete discharge planning assessment and offer availability of needed services. Patient states that she lives independently at home with her Cristobal Mercado ([phone]) prior to admission. Pt verified that home environment is safe and has electricity and running water. Patient denies need for transportation and states that she has funds for services and medications if needed. PCP is Dr Dumont and [facility]. CM offered and discussed home health, rehab services, and need for any medical equipment. Patient did not express need for offered services at this time. Transportation home will be provided by spouse. Patient verbalized understanding of signed forms, BEE form signed for refusal of additional services or needs at this time, placed on chart. DCP REVIEW SUMMARY ANTICIPATED D/C DATE: 07/20/2020 EXPECTED LOS : 1 CASE STATUS: DCP Initiated INITIAL REVIEW: 07/18/2020 INITIAL REVIEWER: Val Tijerina FINAL DISCHARGE DISPOSITION: 01 : Home or Self Care (Routine Discharge) FINAL REVIEWER: FINAL REVIEW DATE: DCP Focus Questions & Answers DCP Screen QUESTION: ANSWER High Risk Factors: : None Walking limitation: Patient stated self rated walking limitation present? : No Age: : 45 - 64 Prior living environment: : Lives with others Disability ranking: : Grade 1: No significant disability DCP Evaluation QUESTION: ANSWER Patient and/or caregiver agree upon recommended discharge plan? : Yes Patient's current cognitive status: : *Oriented to person, place, situation, time and present Patient's ability to cope with chronic illness : d. No chronic illness Family / Caregiver's ability to cope with chronic illness: : a. Adequate (ability to meet patient's medical needs, ensures patient attends medical appts.) Does the patient have the ability to pay for or attain post discharge needs / services? : Yes Functional screen assessment: : Basic needs can adequately be met by self Family / Caregiver's ability to cope with chronic illness: : a. Adequate (ability to meet patient's medical needs, ensures patient attends medical appts.) Physical Status: : Independent with ADL's Equipment needed for post hospitalization: : None Is there a likelihood that the patient will require additional services to return to the preadmission environment? : N/A Living Arrangements: : Home with Spouse/Significant Other Results of this evaluation have been discussed with: : Patient Patient with capacity for self-care or can be cared for in same environment as prior to hospitalization? : Yes Baseline cognitive status: : *Oriented to person, place, situation, time and present Physical environment modification needed / anticipated for discharge: : N/A Medication Management: : Patient states can afford medications Medication Management: : Patient states they do have transportation to hop picker medications Medication Management: : Patient states can read and understand medication labels Planned post hospital services available for patient? : N/A [facility] Planned post hospital services covered by insurance plan? : N/A Does Patient have transportation to get home and to follow-up medical appointments when discharged from the hospital? : Yes Would patient like to participate in any Care Coordination programs (if applicable): : Not applicable Does the patient have electricity at home? : Yes Does the patient have running water in their house? : Yes Equipment in use: : None Mental health screen: : No mental health history Psychosocial status: : Independent adult (18-64) Abuse/Neglect: : None Resources / Services in place: : None DCP Re-evaluation QUESTION: ANSWER Would patient like to participate in any Care Coordination programs (if applicable): : Not applicable PATIENT: ODALIS MERCADO ENCOUNTER: [id number] MEDICAL RECORD#: [id number] ADMISSION DATE: 07/19/2020 DISCHARGE DATE: ATTENDING MD: VASHTI HAILE : AGE: 49 MARITAL STATUS: M DC PLAN ID: [id number] FACILITY: [facility] PRINTED ON: 07/20/20 11:52 CT All edits/amendments must be made on the electronic document DICTATION DATE: 07/20/20 115 ASSISTANT CLINICAL DIRECTOR: SCOT 07/20/20 1152 RPT#: [id number] DC DATE: STATUS: ADM IN [facility] [address] [place] [address] END OF REPORT
--- NOTE | 2020-07-20 13:15 | NUR ---
PT DC HOME WITH FAMILY MEMBER. IV DC. IV CATH TIP INTACT. DRESSING APPLIED. DC INSTRUCTIONS PROVIDED VERBALLY AND WRITTEN. PT VERBALIZED UNDERSTANDING
--- NOTE | 2020-07-22 19:04 | MORECARE ---
CASE MANAGEMENT DISCHARGE SUMMARY PATIENT: ODALIS MERCADO UNIT: [id number] ADM DATE: 07/19/20 AGE: 49 : 72 SEX: F ROOM/BED: D.2103 AUTHOR: JANET,DOC PHYSICIAN: REFERRING PHYSICIAN: VASHTI BRYAN MD DATE OF SERVICE: 07/22/20 Case Management Discharge Planning Summary COMMENTS ENTERED DATE: 07/20/20 11:35 CT COMMENT TYPE: Discharge Planning REVIEWER: Val Tijerina CM met with patient via phone to complete discharge planning assessment and offer availability of needed services. Patient states that she lives independently at home with her Cristobal Mercado ([phone]) prior to admission. Pt verified that home environment is safe and has electricity and running water. Patient denies need for transportation and states that she has funds for services and medications if needed. PCP is Dr Dumont and [facility]. CM offered and discussed home health, rehab services, and need for any medical equipment. Patient did not express need for offered services at this time. Transportation home will be provided by spouse. Patient verbalized understanding of signed forms, BEE form signed for refusal of additional services or needs at this time, placed on chart. DCP REVIEW SUMMARY ANTICIPATED D/C DATE: 07/20/2020 EXPECTED LOS : 1 CASE STATUS: DCP Initiated INITIAL REVIEW: 07/18/2020 INITIAL REVIEWER: Val Tijerina FINAL DISCHARGE DISPOSITION: 01 : Home or Self Care (Routine Discharge) FINAL REVIEWER: FINAL REVIEW DATE: DCP Focus Questions & Answers DCP Screen QUESTION: ANSWER High Risk Factors: : None Walking limitation: Patient stated self rated walking limitation present? : No Age: : 45 - 64 Prior living environment: : Lives with others Disability ranking: : Grade 1: No significant disability DCP Evaluation QUESTION: ANSWER Patient and/or caregiver agree upon recommended discharge plan? : Yes Family / Caregiver's ability to cope with chronic illness: : a. Adequate (ability to meet patient's medical needs, ensures patient attends medical appts.) Patient's current cognitive status: : *Oriented to person, place, situation, time and present Patient's ability to cope with chronic illness : d. No chronic illness Does the patient have the ability to pay for or attain post discharge needs / services? : Yes Functional screen assessment: : Basic needs can adequately be met by self Family / Caregiver's ability to cope with chronic illness: : a. Adequate (ability to meet patient's medical needs, ensures patient attends medical appts.) Physical Status: : Independent with ADL's Equipment needed for post hospitalization: : None Is there a likelihood that the patient will require additional services to return to the preadmission environment? : N/A Living Arrangements: : Home with Spouse/Significant Other Results of this evaluation have been discussed with: : Patient Patient with capacity for self-care or can be cared for in same environment as prior to hospitalization? : Yes Baseline cognitive status: : *Oriented to person, place, situation, time and present Physical environment modification needed / anticipated for discharge: : N/A Medication Management: : Patient states can read and understand medication labels Medication Management: : Patient states they do have transportation to poultry picking machine tender medications Medication Management: : Patient states can afford medications Planned post hospital services available for patient? : N/A [facility] Planned post hospital services covered by insurance plan? : N/A Does Patient have transportation to get home and to follow-up medical appointments when discharged from the hospital? : Yes Would patient like to participate in any Care Coordination programs (if applicable): : Not applicable Does the patient have electricity at home? : Yes Does the patient have running water in their house? : Yes Equipment in use: : None Mental health screen: : No mental health history Psychosocial status: : Independent adult (18-64) Abuse/Neglect: : None Resources / Services in place: : None DCP Re-evaluation QUESTION: ANSWER Would patient like to participate in any Care Coordination programs (if applicable): : Not applicable PATIENT: ODALIS MERCADO ENCOUNTER: [id number] MEDICAL RECORD#: [id number] ADMISSION DATE: 07/19/2020 DISCHARGE DATE: 07/20/2020 ATTENDING MD: VASHTI HAILE : AGE: 49 MARITAL STATUS: M DC PLAN ID: [id number] FACILITY: [facility] PRINTED ON: 07/22/20 19:04 CT All edits/amendments must be made on the electronic document DICTATION DATE: 07/22/201903 KILN FIRER: SCOT 07/22/201903 RPT#: [id number] DC DATE:07/20/20 STATUS: DIS IN [facility] [address] [facility] [place] [address] END OF REPORT
== END 2020-07-20 13:15 | disposition home or self-care (01) | DRG 178 ==
LOC: D.ER 12:39 → D.M2 15:10 → OBSVTIME 15:10 → D.M2 15:10
PROVIDERS: Family Medicine; Internal Medicine Pulmonary Disease; ADMIT Family Medicine Adult Medicine; ATTEND Family Medicine Adult Medicine
DX: U07.1 COVID-19 (principal); J45.901 Unspecified asthma with (acute) exacerbation; E11.9 Type 2 diabetes mellitus without complications; E78.5 Hyperlipidemia, unspecified; K21.9 Gastro-esophageal reflux disease without esophagitis; Z79.84 Long term (current) use of oral hypoglycemic drugs; G51.0 Bell's palsy; E87.5 Hyperkalemia; M41.9 Scoliosis, unspecified; G47.33 Obstructive sleep apnea (adult) (pediatric); I10 Essential (primary) hypertension